=== PATIENT | female | born 1995 | race Hispanic/Latino ===

== ENCOUNTER → 2018-11-04 | Outpatient (CLI) | payer OTHER | END | disposition home or self-care (01) | LOC: RAH 08:18 | PROVIDERS: ATTEND Obstetrics & Gynecology | DX: Z32.01 Encounter for pregnancy test, result positive (principal); Z3A.10 10 weeks gestation of pregnancy | CPT/HCPCS: 76801 ==

== ENCOUNTER → 2019-01-10 | Outpatient (CLI) | payer OTHER | END | disposition home or self-care (01) | LOC: RAH 08:53 | PROVIDERS: ATTEND Obstetrics & Gynecology | DX: O09.92 Supervision of high risk pregnancy, unspecified, second trimester (principal); Z3A.19 19 weeks gestation of pregnancy | CPT/HCPCS: 76805 ==

== ENCOUNTER 2019-02-06 21:41 | Observation (INO) | payer OTHER ==
[2019-02-07] MEDS ORDERED: ACETAMINOPHEN EXTRA STRENGTH 500 MG TABLET ONE (00:34)
[2019-02-07] MEDS ORDERED: ACETAMINOPHEN EXTRA STRENGTH 500 MG TABLET PO SCH (00:45)
== END 2019-02-07 09:10 | disposition home or self-care (01) ==
LOC: LDH 21:41
PROVIDERS: ADMIT Obstetrics & Gynecology; ATTEND Obstetrics & Gynecology
DX: O26.892 Other specified pregnancy related conditions, second trimester (principal); R06.02 Shortness of breath; O99.512 Diseases of the respiratory system complicating pregnancy, second trimester; J45.909 Unspecified asthma, uncomplicated; Z79.899 Other long term (current) drug therapy
CPT/HCPCS: 93005; G0378 ×12

== ENCOUNTER → 2019-04-29 | Outpatient (CLI) | payer OTHER ==
[2019-04-29 06:27] LABS: BASOPHILS % (AUTO) 0.6 % (0.0-5.0); EOSINOPHILS % (AUTO) 1.1 % (0.0-8.0); HEMATOCRIT 34.2 % (36-48); LYMPHOCYTES % (AUTO) 27.2 % (21.0-51.0); MEAN CORPUSCULAR HEMOGLOBIN 29.7 pg (27.0-33.0); MEAN CORPUSCULAR HGB CONC 33.8 g/dL (32.0-36.0); MEAN CORPUSCULAR VOLUME 87.9 fL (79-99); MONOCYTES % (AUTO) 10.3 % (3.0-13.0); NEUTROPHILS % (AUTO) 60.8 % (40.0-77.0); NUCLEATED RED BLOOD CELLS 0.1 % (0.0-0.19); PLATELET COUNT (AUTO) 232 K/uL (130-400); RED BLOOD CELL COUNT(AUTO) 3.89 MIL/uL (4.00-5.50); WHITE BLOOD COUNT (AUTO) 9.3 K/uL (4.8-10.8)
== END | disposition home or self-care (01) ==
LOC: LAB 06:02
PROVIDERS: ATTEND Obstetrics & Gynecology
DX: Z34.83 Encounter for supervision of other normal pregnancy, third trimester (principal); Z3A.36 36 weeks gestation of pregnancy
CPT/HCPCS: 36415; 85025

== ENCOUNTER 2019-05-18 18:38 | Observation (INO) | payer OTHER ==
[~2019-05-18] VITALS: Ht 149.9 cm; Wt 66.7 kg
[2019-05-18 19:08] LABS: APPEARANCE,URINE Clear (CLEAR); BILIRUBIN,URINE Negative (NEGATIVE); COLOR,URINE Yellow (YELLOW); GLUCOSE, URINE (UA) Negative (NEGATIVE); KETONES,URINE Negative (NEGATIVE); LEUKOCYTE ESTERASE ,URINE Trace (NEGATIVE); NITRATE,URINE Negative (NEGATIVE); OCCULT BLOOD,URINE Negative (NEGATIVE); PH,URINE 6.5 (5.0-8.0); PROTEIN,URINE Trace mg/dL (NEGATIVE)
[2019-05-18 19:25] VITALS: BP 121/68
[2019-05-18 19:31] LABS: BACTERIA,URINE Rare /HPF (None Seen); MUCUS,URINE Few LPF (None Seen); RBC,URINE 0-1 /HPF (0-1); SQUAMOUS EPITHELIAL CELL,UR Few /HPF (0-2)
[2019-05-22] MEDS ORDERED: MONT10TA21 PO (15:51)
[2019-05-22] MEDS ORDERED: PREN-154 PO (15:51)
== END 2019-05-18 20:25 | disposition home or self-care (01) ==
LOC: EDH 18:38 → LDH 18:39
PROVIDERS: ADMIT Obstetrics & Gynecology; ATTEND Obstetrics & Gynecology
DX: O26.893 Other specified pregnancy related conditions, third trimester (principal); R10.11 Right upper quadrant pain; O99.513 Diseases of the respiratory system complicating pregnancy, third trimester; J45.909 Unspecified asthma, uncomplicated; Z3A.38 38 weeks gestation of pregnancy
CPT/HCPCS: 81001; 99284; G0378 ×2

== ENCOUNTER 2019-05-22 06:18 | Inpatient (IN) | payer OTHER | END 2019-05-23 15:15 | disposition home or self-care (01) | LOC: LDH 06:18 → WSH 15:35 | PROC: 10E0XZZ Delivery of Products of Conception, External Approach (ICD-10-PCS; principal; ~2019-05-22) | DX: O80 Encounter for full-term uncomplicated delivery (principal); Z37.0 Single live birth; Z3A.38 38 weeks gestation of pregnancy ==

== ENCOUNTER 2020-01-21 12:58 | Emergency (ER) | payer OTHER ==
[~2020-01-21 12:58] MED LIST: MONT10TA21 PO; PREN-154 PO
[2020-01-21 13:58] LABS: BASOPHILS % (AUTO) 0.4 % (0.0-5.0); EOSINOPHILS % (AUTO) 1.8 % (0.0-8.0); HEMATOCRIT 38.2 % (36-48); MEAN CORPUSCULAR HEMOGLOBIN 28.9 pg (27.0-33.0); MEAN CORPUSCULAR VOLUME 87.6 fL (79-99); MONOCYTES % (AUTO) 7.4 % (3.0-13.0); NEUTROPHILS % (AUTO) 65.1 % (40.0-77.0); PLATELET COUNT (AUTO) 271 K/uL (130-400); RED BLOOD CELL COUNT(AUTO) 4.36 MIL/uL (4.00-5.50); RED CELL DISTRIBUTION WIDTH 12.4 % (11.0-15.5); WHITE BLOOD COUNT (AUTO) 6.8 K/uL (4.8-10.8)
[2020-01-21 14:07] LABS: APPEARANCE,URINE Clear (CLEAR); BILIRUBIN,URINE Negative (NEGATIVE); COLOR,URINE Yellow (YELLOW); GLUCOSE, URINE (UA) Negative (NEGATIVE); KETONES,URINE Trace mg/dL (NEGATIVE); LEUKOCYTE ESTERASE ,URINE Trace (NEGATIVE); NITRATE,URINE Negative (NEGATIVE); OCCULT BLOOD,URINE Nonhemolyzed Trace (NEGATIVE); PROTEIN,URINE Negative (NEGATIVE)
[2020-01-21 14:10] LABS: CREATININE 0.8 mg/dL (0.5-1.5); POTASSIUM 3.4 mmol/L (3.5-5.1)
[2020-01-21 14:14] LABS: HCG,QUAL RESULT NEGATIVE (NEGATIVE)
[2020-01-21 14:15] LABS: ALBUMIN 3.8 g/dL (3.5-5.0); BILIRUBIN,TOTAL 0.2 mg/dL (0.2-1.0); TOTAL PROTEIN, SERUM 8.1 g/dL (6.0-8.3)
[2020-01-21 14:19] LABS: BACTERIA,URINE Few /HPF (None Seen); MUCUS,URINE Many LPF (None Seen); SQUAMOUS EPITHELIAL CELL,UR Few /HPF (0-2); WBC,URINE 0-1 /HPF (0-1)
== END 2020-01-21 15:23 | disposition home or self-care (01) ==
LOC: EDH 12:58
DX: Z03.818 Encounter for observation for suspected exposure to other biological agents ruled out (principal); J02.9 Acute pharyngitis, unspecified; R05 Cough; R50.9 Fever, unspecified; J45.909 Unspecified asthma, uncomplicated; Z88.8 Allergy status to other drugs, medicaments and biological substances
CPT/HCPCS: 36415; 71045; 80053; 81001; 81025; 85025; 87633; 87635; 87804; 87880

== ENCOUNTER 2022-02-17 17:45 | Inpatient (IN) | payer OTHER ==
[~2022-02-17] VITALS: Ht 170.2 cm; Wt 88.6 kg
[2022-02-17] MEDS ORDERED: AMPICILLIN 2GM+NS 100ML 100 ML IV ONE (18:27)
[2022-02-17 18:30] LABS: HEMATOCRIT 32.6 % (36-48); MEAN CORPUSCULAR HEMOGLOBIN 27.9 pg (27.0-33.0); MEAN CORPUSCULAR HGB CONC 32.2 g/dL (32.0-36.0); MEAN CORPUSCULAR VOLUME 86.7 fL (79-99); NUCLEATED RED BLOOD CELLS 0.3 % (0.0-0.19); RED BLOOD CELL COUNT(AUTO) 3.76 MIL/uL (4.00-5.50); RED CELL DISTRIBUTION WIDTH 13.9 % (11.0-15.5); WHITE BLOOD COUNT (AUTO) 7.9 K/uL (4.8-10.8)
[2022-02-17] MEDS ORDERED: LACTATED RINGERS 1000ML 1,000 ML IV PRN (18:30)
[2022-02-17] MEDS ORDERED: OXYTOCIN-LR 20 UNITS/1000 ML 1,000 ML IV SCH (18:30)
[2022-02-17] MEDS ORDERED: LACTATED RINGERS 1000ML 1,000 ML IV ONE (18:35)
[2022-02-17 18:39] LABS: APPEARANCE,URINE Cloudy (CLEAR); BILIRUBIN,URINE Small (NEGATIVE); COLOR,URINE Dark Yellow (YELLOW); GLUCOSE, URINE (UA) TRACE mg/dL (NEGATIVE); KETONES,URINE Trace mg/dL (NEGATIVE); LEUKOCYTE ESTERASE ,URINE Small (NEGATIVE); NITRATE,URINE Negative (NEGATIVE); OCCULT BLOOD,URINE Negative (NEGATIVE); PROTEIN,URINE POS 1+ mg/dL (NEGATIVE)
[2022-02-17] MEDS ORDERED: OXYTOCIN-LR 20 UNITS/1000 ML 1,000 ML IV ONE (18:47)
[2022-02-17] MEDS ORDERED: AMPICILLIN 2GM+NS 100ML 100 ML IV SCH (19:00)
[2022-02-17] MEDS ORDERED: PREN-196 PO (19:46)
[2022-02-17 19:48] LABS: BACTERIA,URINE Few /HPF (None Seen); CALCIUM OXALATE CRYSTALS,UR Few /LPF (None Seen); MUCUS,URINE Few LPF (None Seen); RBC,URINE None Seen /HPF (0-1); WBC,URINE 0-1 /HPF (0-1)
[2022-02-17] MEDS ORDERED: ONDA22I PO (19:49)
[2022-02-17] MEDS: AMPICILLIN 1GM+NS 50ML 50 ML IV SCH (23:02)
[2022-02-18] MEDS: AMPICILLIN 1GM+NS 50ML 50 ML IV SCH ×2 (03:04→07:17)
[2022-02-18 09:54] LABS: RAPID PLASMA REAGIN NONREACTIVE (NONREACTIVE)
[2022-02-18] MEDS ORDERED: WITCH HAZEL 1 PAD TP PRN (10:30)
[2022-02-18] MEDS ORDERED: ACETAMINOPHEN 325 MG TAB PO PRN (10:30)
[2022-02-18] MEDS ORDERED: DIPH,PERTUSS(ACELL),TET VAC/PF 0.5 ML VIAL IM PRN (10:30)
[2022-02-18] MEDS ORDERED: LANOLIN 30GM OINTMENT TP PRN (10:30)
[2022-02-18] MEDS ORDERED: BENZOCAINE/LANOLIN/ALOE VERA 60 ML AEROSOL TP PRN (10:30)
[2022-02-18] MEDS ORDERED: ACETAMINOPHEN WITH CODEINE 1 TAB TAB PO PRN (10:30)
[2022-02-18] MEDS ORDERED: MEASLES/MUMPS/RUBELLA VACCINE, LIVE 0.5 ML/VIAL SQ PRN (10:30)
[2022-02-18] MEDS ORDERED: OXYTOCIN-LR 20 UNITS/1000 ML 1,000 ML IV SCH (11:30)
[2022-02-18 12:35] VITALS: BP 134/66
[2022-02-18] MEDS: IBUPROFEN 600 MG TABLET PO PRN ×2 (12:41→21:19)
[2022-02-18 16:10] VITALS: BP 130/86
[2022-02-18 19:17] VITALS: BP 130/81
[2022-02-18] MEDS: DOCUSATE SODIUM 100 MG CAP PO SCH (21:15)
[2022-02-18 23:11] VITALS: BP 130/83
[2022-02-19] MEDS: AMPICILLIN 1GM+NS 50ML 50 ML IV SCH (03:00)
[2022-02-19 03:37] VITALS: BP 122/76
[2022-02-19 06:33] LABS: HEMATOCRIT 28.1 % (36-48); MEAN CORPUSCULAR HEMOGLOBIN 28.2 pg (27.0-33.0); MEAN CORPUSCULAR VOLUME 88.1 fL (79-99); RED BLOOD CELL COUNT(AUTO) 3.19 MIL/uL (4.00-5.50); RED CELL DISTRIBUTION WIDTH 13.7 % (11.0-15.5); WHITE BLOOD COUNT (AUTO) 8.6 K/uL (4.8-10.8)
[2022-02-19 07:40] VITALS: BP 119/83
[2022-02-19] MEDS: DOCUSATE SODIUM 100 MG CAP PO SCH (09:24)
[2022-02-19] MEDS: IBUPROFEN 600 MG TABLET PO PRN (09:25)
[2022-02-19 11:20] VITALS: BP 126/85
== END 2022-02-19 15:00 | disposition home or self-care (01) | DRG 807 ==
LOC: LDH 17:45 → WSH 02-18 12:35
PROVIDERS: ADMIT Obstetrics & Gynecology; ATTEND Obstetrics & Gynecology
PROC: 10E0XZZ Delivery of Products of Conception, External Approach (ICD-10-PCS; principal; 2022-02-18)
DX: O80 Encounter for full-term uncomplicated delivery (principal); Z37.0 Single live birth; Z3A.39 39 weeks gestation of pregnancy; Z88.8 Allergy status to other drugs, medicaments and biological substances
CPT/HCPCS: 36415; 81001; 85027; 86592; 86701; 86850; 86900; 86901; 87340; 87390; 90715; G0378; J0290; J2590; J7120

== ENCOUNTER 2022-02-20 21:36 | Observation (INO) | payer OTHER ==
[~2022-02-20] VITALS: Ht 152.4 cm; Wt 68.0 kg
[~2022-02-20 21:36] MED LIST changes: -MONT10TA21 PO; -PREN-154 PO; +PREN-196 PO
[2022-02-20 21:55] LABS: BASOPHILS % (AUTO) 0.3 % (0.0-5.0); EOSINOPHILS % (AUTO) 2.3 % (0.0-8.0); HEMATOCRIT 30.9 % (36-48); LYMPHOCYTES % (AUTO) 31.6 % (21.0-51.0); MEAN CORPUSCULAR HEMOGLOBIN 28.6 pg (27.0-33.0); MEAN CORPUSCULAR HGB CONC 32.4 g/dL (32.0-36.0); MEAN CORPUSCULAR VOLUME 88.3 fL (79-99); MONOCYTES % (AUTO) 7.4 % (3.0-13.0); NEUTROPHILS % (AUTO) 57.4 % (40.0-77.0); PLATELET COUNT (AUTO) 199 K/uL (130-400); RED CELL DISTRIBUTION WIDTH 14.1 % (11.0-15.5)
[2022-02-20 22:04] VITALS: BP 153/89
[2022-02-20 22:06] LABS: CREATININE 0.6 mg/dL (0.5-1.5); POTASSIUM 4.1 mmol/L (3.5-5.1)
[2022-02-20 22:20] LABS: ALBUMIN 2.3 g/dL (3.5-5.0); BILIRUBIN,TOTAL 0.1 mg/dL (0.2-1.0); TOTAL PROTEIN, SERUM 5.8 g/dL (6.0-8.3); URIC ACID 5.2 mg/dL (2.6-7.2)
[2022-02-20] MEDS ORDERED: ONDANSETRON 4MG INJ IVP PRN (23:00)
[2022-02-20] MEDS ORDERED: MORPHINE 8MG VIAL IVP PRN (23:00)
[2022-02-20] MEDS: LACTATED RINGERS 1000ML 1,000 ML IV SCH (23:17)
[2022-02-20 23:23] LABS: INR 0.93 (0.85-1.15); PROTHROMBIN TIME 9.8 SEC (9.6-11.6)
[2022-02-20 23:24] LABS: PARTIAL THROMBOPLASTIN TIME 22.7 SEC (26.3-35.5)
[2022-02-20] MEDS ORDERED: MORPHINE 10MG VIAL IVP PRN (23:30)
[2022-02-21 02:53] LABS: APPEARANCE,URINE Clear (CLEAR); BILIRUBIN,URINE Negative (NEGATIVE); COLOR,URINE Yellow (YELLOW); GLUCOSE, URINE (UA) Negative (NEGATIVE); KETONES,URINE Negative (NEGATIVE); LEUKOCYTE ESTERASE ,URINE Negative (NEGATIVE); NITRATE,URINE Negative (NEGATIVE); OCCULT BLOOD,URINE Moderate (NEGATIVE); PH,URINE 6.5 (5.0-8.0); PROTEIN,URINE Negative (NEGATIVE)
[2022-02-21 03:15] LABS: RBC,URINE 26-50 /HPF (0-1); WBC,URINE 0-1 /HPF (0-1)
[2022-02-21 03:16] LABS: BACTERIA,URINE Few /HPF (None Seen); SQUAMOUS EPITHELIAL CELL,UR 0-2 /HPF (0-2)
[2022-02-21] MEDS: LACTATED RINGERS 1000ML 1,000 ML IV SCH (06:10)
[2022-02-21] MEDS ORDERED: MORPHINE 4 MG SYG IVP PRN ×2 (07:30→13:30)
[2022-02-21] MEDS ORDERED: IOHEXOL-350 75 ML VIAL IV ONE (09:18)
[2022-02-21] MEDS ORDERED: FUROSEMIDE 40MG VIAL IV SCH (09:30)
[2022-02-21] MEDS: NIFEDIPINE 10 MG CAP PO SCH ×2 (09:38→14:00)
[2022-02-21 11:53] LABS: BASOPHILS % (AUTO) 0.3 % (0.0-5.0); EOSINOPHILS % (AUTO) 2.2 % (0.0-8.0); HEMATOCRIT 31.5 % (36-48); LYMPHOCYTES % (AUTO) 25.4 % (21.0-51.0); MEAN CORPUSCULAR HEMOGLOBIN 28.4 pg (27.0-33.0); MEAN CORPUSCULAR HGB CONC 31.4 g/dL (32.0-36.0); MEAN CORPUSCULAR VOLUME 90.3 fL (79-99); MONOCYTES % (AUTO) 6.8 % (3.0-13.0); NEUTROPHILS % (AUTO) 64.2 % (40.0-77.0); PLATELET COUNT (AUTO) 197 K/uL (130-400); RED BLOOD CELL COUNT(AUTO) 3.49 MIL/uL (4.00-5.50); WHITE BLOOD COUNT (AUTO) 8.9 K/uL (4.8-10.8)
[2022-02-21 12:14] LABS: ALBUMIN 2.2 g/dL (3.5-5.0); BILIRUBIN,TOTAL 0.2 mg/dL (0.2-1.0); CREATININE 0.5 mg/dL (0.5-1.5); TOTAL PROTEIN, SERUM 5.5 g/dL (6.0-8.3)
[2022-02-21] MEDS ORDERED: ACETAMINOPHEN 325 MG TAB PO PRN (15:00)
== END 2022-02-21 17:35 | disposition home or self-care (01) ==
LOC: EDH 21:36 → LDH 21:37
PROVIDERS: ADMIT Obstetrics & Gynecology; ATTEND Obstetrics & Gynecology
DX: I20.9 Angina pectoris, unspecified (principal); J96.01 Acute respiratory failure with hypoxia; G43.909 Migraine, unspecified, not intractable, without status migrainosus; I10 Essential (primary) hypertension; I49.8 Other specified cardiac arrhythmias; R07.89 Other chest pain; J90 Pleural effusion, not elsewhere classified; G44.209 Tension-type headache, unspecified, not intractable; R77.8 Other specified abnormalities of plasma proteins; Z79.899 Other long term (current) drug therapy; Z98.890 Other specified postprocedural states
CPT/HCPCS: 36415 ×2; 70450; 71045; 71275; 80053 ×2; 81001; 82550; 83874; 83880; 84484 ×2; 84550; 85025 ×2; 85378; 85384; 85610; 85730; 93005; 93971; 96361 ×3; 96374; 96375; 96376; 99285; A4510; A4600; G0378 ×19; J1940; J2270 ×2; J7120 ×3; Q9967; 96360